=== PATIENT | female | born 1960 | race Caucasian/White ===

== ENCOUNTER 2017-05-10 13:51 | Observation (INO) ==
--- NOTE | 2017-05-10 14:44 | Emergency Department Note ---
Disposition Clinical Impression: Acute cholecystitis Nausea and vomiting Qualifiers: Vomiting type: unspecified Vomiting Intractability: non-intractable Qualified Code(s): R11.2 - Nausea with vomiting, unspecified Disposition: Admitted As Inpatient Condition: Fair Time of Disposition: 17:17 General Adult HPI - General Chief complaint: ED Abdominal Pain Stated complaint: N/V/D Time Seen by Provider: 05/10/17 14:27 Source: patient Mode of arrival: ambulatory Limitations: no limitations Nursing Notes Reviewed: Yes Vital Signs Reviewed: Yes - History of Present Illness HPI Narrative: Patient is a 57-year-old female with no pertinent past medical history she is presenting to the emergency department for the complaint of epigastric abdominal pain that started yesterday evening. Patient describes the pain as a burning sensation in the epigastric region that came on suddenly after eating dinner. She states that since that time the pain has been constant she is also has experienced multiple episodes of nausea and vomiting since that time. States last time she had any foods he was 18:00. Pain Scale: 9 - Related Data Home Medications Medication Instructions Recorded Confirmed Lisinopril [Zestril] 10 mg PO DAILY 11/08/14 05/10/17 Magnesium Oxide [Magnesium] 400 mg PO DAILY 12/27/16 05/10/17 Cholecalciferol (D-3) [Vitamin D] 1,000 unit PO DAILY 05/10/17 05/10/17 Pediatric Multivit Comb #19/FA 400 mcg PO DAILY 05/10/17 05/10/17 [Children's Multi-Vit Gummies] Previous Rx's Medication Instructions Recorded Anastrozole [Arimidex] 1 mg PO DAILY #90 tablet 03/21/17 Allergies Allergy/AdvReac Type Severity Reaction Status Date / Time Sulfa (Sulfonamide Allergy Hives Verified 12/27/16 11:00 Antibiotics) All systems ED: reviewed and negative except as stated. Review of Systems: As Per HPI Constitutional: Denies: fever, chills Cardiovascular: Denies: chest pain Respiratory: Denies: cough, dyspnea Gastrointestinal: Reports: abdominal pain, nausea, vomiting. Denies: diarrhea, hematemesis, melena, hematochezia Genitourinary: Denies: urgency, dysuria Musculoskeletal: Denies: back pain, neck pain Past Medical History - Past Medical History Attestation: Yes The following information was validated with the patient. Medical history: Reports: no medical history Psychiatric history: Reports: no psych history - Social History Smoking Status: Never smoker Smokeless Tobacco Status: No Alcohol use: Reports: none Drug use: Reports: none Physical Exam CONSTITUTIONAL: Alert and oriented X3, patient appears tired and fatigued, in no apparent distress HEAD: Normocephalic; atraumatic. EYES: PERRL, no scleral icterus. NOSE: The nose is normal in appearance without rhinorrhea THROAT: mucus membranes dry. RESP: Normal chest excursion with respiration; breath sounds clear and equal bilaterally; no wheezes, rhonchi, or rales CARD: Regular rhythm, without murmurs, rub or gallop ABD: Non-distended; mildly tender in the epigastric region, soft,without rigidity, rebound or guarding. SKIN: Normal for age and race; warm and dry; no apparent lesions - General Limitations: no limitations General appearance: alert Course Course Narrative: Patient is presenting with abdominal pain onset yesterday evening associated nausea and vomiting. Location of the pain is epigastric this will complete abdominal workup looking for any signs of cholecystitis, pancreatitis or other etiology of the patient's pain. We will also perform a cardiac workup of the patient due to the location of the pain including EKG, troponin and chest x- ray. Patient will be treated for her pain and her nausea we will also initiate IV fluid hydration. - Reevaluation(s) Reevaluation #1: Laboratory was essentially unremarkable except for showing signs of dehydration which is consistent with the clinical picture. The patient's CT of abdomen and pelvis resulted in radiology appreciated acute cholecystitis. Patient states that her pain has improved markedly after receiving the pain medication. Plan is to consult surgery for further management. Time: 17:06 Reevaluation #2: I discussed the patient's case with Dr. Dangelo, he agrees to accept the patient's he states that he will initiate IV antibiotics once patient is admitted he will see her tomorrow morning for surgery. I discussed this with the patient and she agrees with the plan at this time. She requested additional medication for nausea which I will order. Time: 18:05 Vital Signs Temperature 98.0 F 05/10/17 14:06 Pulse Rate 84 05/10/17 14:06 Respiratory Rate 16 05/10/17 14:06 Blood Pressure 156/83 05/10/17 14:06 O2 Sat by Pulse Oximetry 99 05/10/17 14:06 Temperature 98.0 F 05/10/17 14:06 Pulse Rate 91 05/10/17 17:26 Respiratory Rate 16 05/10/17 17:26 Blood Pressure 138/83 05/10/17 17:26 O2 Sat by Pulse Oximetry 96 05/10/17 17:26 Oxygen Delivery Oxygen Delivery Room Air Medical Decision Making - Medical Records Medical records reviewed: Yes I reviewed the patient's medical records. - Lab Data Lab results reviewed: Yes I reviewed the patient's lab results. Result diagrams: 05/10/17 15:19 05/10/17 14:42 Lab Results 05/10/17 05/10/17 05/10/17 Range/Units 14:42 15:10 15:19 WBC 10.8 (4.3-11.1) K/mcL RBC 3.66 L (3.82-4.97) M/mcL Hgb 11.6 (11.5-15.4) g/dL Hct 34.8 L (35.3-44.9) % MCV 95.1 (83.0-100.0) fL MCH 31.7 (28.0-33.3) pg MCHC 33.3 (31.6-35.5) g/dL RDW 12.2 (11.5-14.5) % Plt Count 217 (140-400) K/mcL MPV 9.5 (9.4-12.4) fL Immature Gran % 0.4 (0-4) % Seg Neutrophils % 93.5 % Lymphocytes % 3.4 % Monocytes % 2.6 % Eosinophils % 0.0 % Basophils % 0.1 % Neutrophils # 10.1 H (1.6-8.9) K/mcL Lymphocytes # 0.4 L (0.6-4.6) K/mcL Monocytes # 0.3 (0.0-1.3) K/mcL Eosinophils # 0.0 (0.0-0.6) K/mcL Basophils # 0.0 (0.0-0.2) K/mcL Sodium 137 (136-145) mEq/L Potassium 4.3 (3.5-5.1) mEq/L Chloride 105 (98-107) mEq/L Carbon Dioxide 20 L (23-29) mEq/L BUN 18 (6-20) mg/dL Creatinine 0.72 (0.60-1.20) mg/dL Est GFR ( Amer) > 60 (> 60) Est GFR (Non-Af Amer) > 60 (> 60) BUN/Creatinine Ratio 25 (6-26) Glucose 141 H (70-105) mg/dL Calculated Osmolality 288 (280-300) Calcium 9.9 (8.6-10.3) mg/dL Total Bilirubin 0.4 (0.3-1.0) mg/dL Direct Bilirubin 0.1 (0.0-0.2) mg/dL Indirect Bilirubin 0.3 (0.0-1.2) mg/dL AST 29 (13-39) Units/L ALT 23 (7-52) Units/L Alkaline Phosphatase 36 (34-104) Units/L Troponin I < 0.03 (< 0.04) ng/mL Serum Total Protein 7.4 (6.4-8.9) g/dL Albumin 4.6 (3.5-5.7) g/dL Globulin 2.8 (2.4-3.5) g/dL Albumin/Globulin Ratio 1.6 (1.1-2.2) Lipase 17 (11-82) Units/L Urine Color Yellow (Yellow) Urine Clarity Clear (Clear) Urine pH 7.0 (5.0-8.0) pH Units Ur Specific [place] 1.028 H (1.010-1.025) Urine Protein 30 H (Neg-Trace) mg/dL Urine Glucose (UA) Normal (Normal) mg/dL Urine Ketones 15 H (Negative) mg/dL Urine Blood Negative (Negative) Urine Nitrite Negative (Negative) Urine Bilirubin Negative (Negative) Urine Urobilinogen Normal (Normal) mg/dL Ur Leukocyte Esterase Negative (Negative) Urine Microscopic RBC 3-5 H (0-3) per hpf Urine Microscopic WBC 5-15 H (0-3) per hpf Ur Squamous Epith Cells Many H (None-Few) per lpf Urine Bacteria Few (None-Few) per hpf Hyaline Casts None Seen (None-Few) per lpf Ur Culture Indicated? NO (NO) - Radiology Data Radiology results reviewed: Yes I reviewed the patient's radiology results. Chest X-Ray 05/10/17 14:43 IMPRESSION: No acute cardiopulmonary process. D/ / Lucy Morel MD / Lucy Morel MD Interpreting Provider: Lucy Morel MD Abdomen/Pelvis CT 05/10/17 16:01 IMPRESSION: CT findings compatible with acute cholecystitis. Incidentally noted pulmonary micronodule. Diverticulosis coli. RECOMMENDATIONS: Fleischner Society guidelines for follow-up and management of pulmonary nodules: Nodule size less than or equal to 4 mm In a low-risk patient, no follow-up needed. In a high-risk patient, follow-up CT at 12 months; if unchanged, no further follow-up. Nodule size equals 4-6 mm In a low-risk patient, follow-up CT at 12 months; if unchanged, no further follow-up. In a high-risk patient, initial follow-up CT at 6-12 months then at 18-24 months if no change. Nodule size equals 6-8 mm In a low-risk patient, initial follow-up CT at 6-12 months then at 18-24 months if no change. In a high-risk patient, initial follow-up CT at 3-6 months then at 9-12 months and 24 months if no change. Nodule size greater than 8 mm In low-risk and high-risk patients follow-up CT at around 3, 9, and 24 months, dynamic contrast-enhanced CT, PET, and/or biopsy. Low risk patients include individuals with minimal or absent history of smoking and other known risk factors. High risk patients include individuals with a history of smoking or other known risk factors. Radiology 2005; [id number] D/ / Loki Greer MD / Loki Greer MD Interpreting Provider: Loki Greer MD - EKG Data EKG #1 EKG attestation: Yes I reviewed and interpreted this EKG. EKG results narrative: EKG done at 14:52 shows sinus rhythm at a rate of 76 bpm. Normal axis. MS is 170, QRS is 100, QT is 417 and QTc is 448 these are within normal limits. No signs of ST elevation, depression or Q waves presents in no old EKG for comparison.
[2017-05-10] MEDS ORDERED: 0.9 % Sodium Chloride 1,000 ML IVC ONE (15:02)
[2017-05-10] MEDS ORDERED: Ondansetron 4 MG/2 ML VIAL IVP ONE (15:02)
--- NOTE | 2017-05-10 15:24 | Emergency Department Note ---
START Narrative - START START: I examined this patient and my medical decision-making was reviewed with the ARTS ADMINISTRATOR/PA/Advanced Practice Nurse/Resident Physician. I agree with the documented findings, disposition and treatment plan as described except to the extent set forth below. The patient's presents with epigastric pain and fullness with associated vomiting and diarrhea and the patient did have a EKG which shows normal sinus rhythm with a rate of 76 without acute ischemic change but evidence of incomplete right bundle branch block and she does not have any associated diaphoresis or dyspnea and she does have pain with palpation in this location. A ultrasound will be done to take a look at her aorta however it is unlikely with her age that she has a dissection she does have associated vomiting or diarrhea. She does have labs ordered including LFTs and lipase and will also receive IV fluids and anti-medic medication. [id number]
[2017-05-10 15:25] LABS: Bilirubin,Urine Negative (Negative); Blood,Urine Negative (Negative); Clarity,Urine Clear (Clear); Color,Urine Yellow (Yellow); Glucose,Urine (UA) Normal (Normal); Ketones,Urine 15 mg/dL (Negative); Leukocyte Esterase,Urine Negative (Negative); Nitrite,Urine Negative (Negative); Protein,Urine 30 mg/dL (Neg-Trace); Specific Gravity,Urine 1.028 (1.010-1.025); Urobilinogen,Urine Normal (Normal)
[2017-05-10 15:26] LABS: Troponin I < 0.03 ng/mL (< 0.04)
[2017-05-10 15:28] LABS: Alanine Aminotransferase 23 Units/L (7-52); Albumin 4.6 g/dL (3.5-5.7); Albumin/Globulin Ratio 1.6 (1.1-2.2); Alkaline Phosphatase 36 Units/L (34-104); Aspartate Amino Transferase 29 Units/L (13-39); Bilirubin,Direct 0.1 mg/dL (0.0-0.2); Bilirubin,Indirect 0.3 mg/dL (0.0-1.2); Bilirubin,Total 0.4 mg/dL (0.3-1.0); Blood Urea Nitrogen 18 mg/dL (6-20); Calcium 9.9 mg/dL (8.6-10.3); Carbon Dioxide 20 mEq/L (23-29); Chloride 105 mEq/L (98-107); Globulin 2.8 g/dL (2.4-3.5); Glucose 141 mg/dL (70-105); Lipase 17 Units/L (11-82); Osmolality,Calculated 288 (280-300); Potassium 4.3 mEq/L (3.5-5.1); Sodium 137 mEq/L (136-145); Total Protein 7.4 g/dL (6.4-8.9)
[2017-05-10 15:31] LABS: Bacteria,Urine Few per hpf (None-Few); Hyaline Casts,Urine None Seen per lpf (None-Few); Squamous Epithelial Cell,Urine Many per lpf (None-Few)
[2017-05-10 15:54] LABS: Basophils % 0.1 %; Hematocrit 34.8 % (35.3-44.9); Hemoglobin 11.6 g/dL (11.5-15.4); Immature Granulocytes % 0.4 % (0-4); Lymphocytes # 0.4 K/mcL (0.6-4.6); Lymphocytes % 3.4 %; Mean Corpuscular HGB Conc 33.3 g/dL (31.6-35.5); Mean Corpuscular Hemoglobin 31.7 pg (28.0-33.3); Mean Corpuscular Volume 95.1 fL (83.0-100.0); Mean Platelet Volume 9.5 fL (9.4-12.4); Monocytes # 0.3 K/mcL (0.0-1.3); Monocytes % 2.6 %; Neutrophils # 10.1 K/mcL (1.6-8.9); Platelet Count 217 K/mcL (140-400); Red Blood Count 3.66 M/mcL (3.82-4.97); Red Cell Distribution Width 12.2 % (11.5-14.5); Segmented Neutrophils % 93.5 %
[2017-05-10] MEDS ORDERED: *HR* FentaNYL (PF) 100 MCG/2 ML VIAL IVP ONE ×2 (16:00→17:51)
[2017-05-10 16:33] LABS: BUN/Creatinine Ratio 25 (6-26); eGFR For African Americans > 60 (> 60); eGFR For Non-African Americans > 60 (> 60)
[2017-05-10] MEDS ORDERED: *HR* Promethazine 25 MG/ML VIAL IVP ONE (17:51)
[2017-05-10] MEDS ORDERED: *HR* OxyCODONE/APAP 10/325 TABLET PO PRN (19:24)
[2017-05-10] MEDS ORDERED: Ondansetron 4 MG/2 ML VIAL IVP PRN (19:25)
[2017-05-10] MEDS ORDERED: 0.9 % Sodium Chloride 1,000 ML IVC SCH (19:30)
[2017-05-10 19:48] LABS: Hematocrit 32.7 % (35.3-44.9); Immature Granulocytes % 0.4 % (0-4); Lymphocytes % 5.2 %; Mean Corpuscular HGB Conc 33.6 g/dL (31.6-35.5); Mean Corpuscular Hemoglobin 32.4 pg (28.0-33.3); Mean Corpuscular Volume 96.5 fL (83.0-100.0); Mean Platelet Volume 9.1 fL (9.4-12.4); Monocytes % 3.4 %; Platelet Count 202 K/mcL (140-400); Red Blood Count 3.39 M/mcL (3.82-4.97); Red Cell Distribution Width 12.4 % (11.5-14.5)
[2017-05-10 19:49] LABS: Lymphocytes # 0.6 K/mcL (0.6-4.6); Monocytes # 0.4 K/mcL (0.0-1.3); Neutrophils # 10.6 K/mcL (1.6-8.9)
[2017-05-10 20:07] LABS: BUN/Creatinine Ratio 23 (6-26); Blood Urea Nitrogen 17 mg/dL (6-20); Calcium 9.1 mg/dL (8.6-10.3); Carbon Dioxide 23 mEq/L (23-29); Chloride 107 mEq/L (98-107); Glucose 127 mg/dL (70-105); Osmolality,Calculated 289 (280-300); Potassium 3.9 mEq/L (3.5-5.1); Sodium 138 mEq/L (136-145); eGFR For African Americans > 60 (> 60); eGFR For Non-African Americans > 60 (> 60)
--- NOTE | 2017-05-10 22:04 | General Surg History&Physical ---
Date of Encounter: 05/10/17 Time of Encounter: 21:45 Assessment and Plan (1) Acute cholecystitis Current Visit: Yes Status: Acute The assessment and plan as outlined above was discussed with the patient and/or family members who expressed understanding and agreement. All questions were answered. History and radiologic findings consistent with acute cholecystitis, choledocholithiasis, possible obstructed gallbladder. She has mild leukocytosis. She will be given antibiotics tonight we will proceed with laparoscopic cholecystectomy first thing in the morning. We discussed risks and benefits of surgery including bleeding, infection, bile duct leak or injury , and open conversion. She wishes to proceed History of Present Illness Chief complaint: Acute cholecystitis HPI: Ms. Chung is a 57 year old female Who has had multiple episodes of mild epigastric postprandial discomfort for the last several years. Several days ago. Episodes became more intense with greater pain and longer duration. This morning she had onset of epigastric pain was unrelenting. This was associated with intense nausea and vomiting. She sought evaluation she does have shakes and chills. She does not have fever. She denies episodes of jaundice. Emergency room evaluation included CAT scan. Operation. CAT scan images. Findings are consistent with an obstructed gallbladder with a large gallstone in the neck gallbladder. The gallbladder was thickened with pericholecystic fluid Findings are consistent with acute cholecystitis and cholelithiasiss as well as gallbladder obstruction I discussed the findings CAT scan and physical examination. Recommend laparoscopic cholecystectomy and intraoperative cholangiogram after a period of IV antibiotics. She understands this and we will proceed first thing in the morning with laparoscopic cholecystectomy and cholangiogram Past Med Surg Social Fam HX - Past Medical History Medical history: no medical history, other (breast cancer 2013) Psychiatric history: no psych history - Past Surgical History Surgical History: other (bilateral mastectomy and reconstruction) - Social History Smoking Status: Never smoker Smokeless Tobacco Status: No Alcohol use: none Drug use: none Medications and Allergies Lisinopril [Zestril] 10 mg PO DAILY 11/08/14 [History] Magnesium Oxide [Magnesium] 400 mg PO DAILY 12/27/16 [History] Anastrozole [Arimidex] 1 mg PO DAILY #90 tablet 03/21/17 [Rx] Cholecalciferol (D-3) [Vitamin D] 1,000 unit PO DAILY 05/10/17 [History] Pediatric Multivit Comb #19/FA [Children's Multi-Vit Gummies] 400 mcg PO DAILY 05/10/17 [History] 3 Allergy/AdvReac Type Severity Reaction Status Date / Time Sulfa (Sulfonamide Allergy Hives Verified 12/27/16 11:00 Antibiotics) Review of Systems All systems PM: The remainder of the systems were reviewed and are negative General Surgery Exam Initial Vital Signs Temp Pulse Resp BP Pulse Ox 98.0 F 84 16 156/83 99 05/10/17 14:06 05/10/17 14:06 05/10/17 14:06 05/10/17 14:06 05/10/17 14:06 - General physical appearance well developed, well nourished, no distress - ENT normal pinna, normal nares, normal mucosa, no hearing loss, no congestion - Respiratory normal expansion, normal respiratory effort, clear to percussion, clear to auscultation - Cardiovascular Cardiovascular exam: Present: RRR, 15, 16 - Abdomen Abdomen general surgery: Present: bowel sounds present, tender Abdominal Tenderness: Present: epigastic - Integumentary Integumentary general surgery: Present: warm and dry, no abnormal pigmentation, other (no jaundice) - Neurologic Present: CN 2-12 grossly intact, normal coordination, normal sensation - Psychiatric Psychiatric general surgery: Present: appropriate, oriented to person, oriented to place, oriented to time, speech is normal, memory intact Results - Labs 05/10/17 19:39 05/10/17 19:39 Abnormal lab results WBC 11.6 K/mcL (4.3-11.1) H 05/10/17 19:39 RBC 3.39 M/mcL (3.82-4.97) L 05/10/17 19:39 Hgb 11.0 g/dL (11.5-15.4) L 05/10/17 19:39 Hct 32.7 % (35.3-44.9) L 05/10/17 19:39 MPV 9.1 fL (9.4-12.4) L 05/10/17 19:39 Neutrophils # 10.6 K/mcL (1.6-8.9) H 05/10/17 19:39 Glucose 127 mg/dL (70-105) H 05/10/17 19:39 Ur Specific [place] 1.028 (1.010-1.025) H 05/10/17 15:10 Urine Protein 30 mg/dL (Neg-Trace) H 05/10/17 15:10 Urine Ketones 15 mg/dL (Negative) H 05/10/17 15:10 Urine Microscopic RBC 3-5 per hpf (0-3) H 05/10/17 15:10 Urine Microscopic WBC 5-15 per hpf (0-3) H 05/10/17 15:10 Ur Squamous Epith Cells Many per lpf (None-Few) H 05/10/17 15:10 Diabetes panel 05/10/17 Range/Units 19:39 Sodium 138 (136-145) mEq/L Potassium 3.9 (3.5-5.1) mEq/L Chloride 107 (98-107) mEq/L Carbon Dioxide 23 (23-29) mEq/L BUN 17 (6-20) mg/dL Creatinine 0.75 (0.60-1.20) mg/dL Glucose 127 H (70-105) mg/dL Calcium 9.1 (8.6-10.3) mg/dL Calcium panel 05/10/17 Range/Units 19:39 Calcium 9.1 (8.6-10.3) mg/dL Pituitary panel 05/10/17 Range/Units 19:39 Sodium 138 (136-145) mEq/L Potassium 3.9 (3.5-5.1) mEq/L Chloride 107 (98-107) mEq/L Carbon Dioxide 23 (23-29) mEq/L BUN 17 (6-20) mg/dL Creatinine 0.75 (0.60-1.20) mg/dL Glucose 127 H (70-105) mg/dL Calcium 9.1 (8.6-10.3) mg/dL Adrenal panel 05/10/17 Range/Units 19:39 Sodium 138 (136-145) mEq/L Potassium 3.9 (3.5-5.1) mEq/L Chloride 107 (98-107) mEq/L Carbon Dioxide 23 (23-29) mEq/L BUN 17 (6-20) mg/dL Creatinine 0.75 (0.60-1.20) mg/dL Glucose 127 H (70-105) mg/dL Calcium 9.1 (8.6-10.3) mg/dL All other labs normal. - Imaging CT scan - abdomen: image reviewed (I personally reviewed the images on the CAT scan. Findings are consistent with acute cholecystitis and possibly an obstructed gallbladder with cholelithiasis and the neck of the gallbladder.) - VTE Reasons for not Prescribing Prophylaxis: Treatment not Indicated - Low risk for VTE
[2017-05-11] MEDS ORDERED: CefOXitin 1,000 MG VIAL ONE (07:03)
[2017-05-11 07:04] LABS: Basophils % 0.3 %; Eosinophils # 0.1 K/mcL (0.0-0.6); Eosinophils % 0.8 %; Hematocrit 29.6 % (35.3-44.9); Hemoglobin 9.7 g/dL (11.5-15.4); Immature Granulocytes % 0.3 % (0-4); Lymphocytes # 0.8 K/mcL (0.6-4.6); Lymphocytes % 9.8 %; Mean Corpuscular HGB Conc 32.8 g/dL (31.6-35.5); Mean Corpuscular Hemoglobin 31.8 pg (28.0-33.3); Mean Platelet Volume 9.1 fL (9.4-12.4); Monocytes # 0.5 K/mcL (0.0-1.3); Monocytes % 6.9 %; Neutrophils # 6.4 K/mcL (1.6-8.9); Platelet Count 156 K/mcL (140-400); Red Blood Count 3.05 M/mcL (3.82-4.97); Red Cell Distribution Width 12.6 % (11.5-14.5); Segmented Neutrophils % 81.9 %
[2017-05-11] MEDS ORDERED: Isovue-300 50 ML VIAL IVP ONE (07:05)
--- NOTE | 2017-05-11 07:15 | Anesthesia Evaluation PreOp ---
Date of Encounter: 05/11/17 Time of Encounter: 07:20 - Past History Planned Operation: Lap Cholecystectomy Cardiac History: HTN Pulmonary History: Denies Any Significant HX CLOTH EXAMINER MACHINE History: Denies Any Significant HX Other Medical History: Denies Any Significant HX Anesthesia History: No Prior Anesthetic Complications : No Alcohol Use: none Drug use: none Medications and Allergies Lisinopril [Zestril] 10 mg PO DAILY 11/08/14 [History] Magnesium Oxide [Magnesium] 400 mg PO DAILY 12/27/16 [History] Anastrozole [Arimidex] 1 mg PO DAILY #90 tablet 03/21/17 [Rx] Cholecalciferol (D-3) [Vitamin D] 1,000 unit PO DAILY 05/10/17 [History] Pediatric Multivit Comb #19/FA [Children's Multi-Vit Gummies] 400 mcg PO DAILY 05/10/17 [History] 3 Allergy/AdvReac Type Severity Reaction Status Date / Time Sulfa (Sulfonamide Allergy Hives Verified 12/27/16 11:00 Antibiotics) - Meds/Allergy Pre-op Review Medications Reviewed: Yes Allergies Reviewed: Yes Beta Blockers on Current Med List: No Anesthesia Results - Labs 05/11/17 06:48 05/10/17 19:39 Anesthesia Exam O2 Sat Height 48.6 cm Height 1.63 m Weight 48.994 kg Weight 48.534 kg O2 Sat by Pulse Oximetry 74 O2 Sat by Pulse Oximetry 96 O2 Sat by Pulse Oximetry 96 O2 Sat by Pulse Oximetry 97 O2 Sat by Pulse Oximetry 96 O2 Sat by Pulse Oximetry 98 O2 Sat by Pulse Oximetry 99 O2 Sat by Pulse Oximetry 99 O2 Sat by Pulse Oximetry 99 Vital Signs Temp Pulse Resp BP Pulse Ox 98.0 F 84 16 156/83 99 05/10/17 14:06 05/10/17 14:06 05/10/17 14:06 05/10/17 14:06 05/10/17 14:06 Height: 5'4 Weight: 108 lbs NPO (# of Hours): MN Pain Scale: 0 - HEENT Pupil (Motor): Pupils equal, EOMI Mallampati: II Teeth: Normal Oral Opening: Greater than 3 - CLOTH EXAMINER MACHINE LOC: Oriented CLOTH EXAMINER MACHINE Motor: Normal RUE, Normal LUE, Normal RLE, Normal LLE, Normal Face [employer]OTH EXAMINER MACHINE Sensory: Normal: RUE, LUE, RLE, LLE, Face - Cardiac Rhythm: Regular Murmur: None JVD: No Carotid Bruit: No - Pulmonary Breath Sounds: bilateral Clear Respiratory Effort: Symmetrical Anesthesia Assess/Plan ASA Score: 2 Modified Jl Scale for Level of Consciousness: Cooperative, oriented, and tranquil Anesthetic Plan: General Monitoring Plan: Standard Monitors Recovery Plan: PACU (Discussed GA, agrees to proceed)
[2017-05-11] MEDS ORDERED: *HR* Rocuronium Bromide 50 MG/5 ML VIAL ONE (07:23)
[2017-05-11] MEDS ORDERED: *HR* Propofol 200 MG/20 ML VIAL IVP ONE (07:23)
[2017-05-11] MEDS ORDERED: *HR* FentaNYL (PF) 100 MCG/2 ML VIAL ONE (07:23)
[2017-05-11 07:25] LABS: BUN/Creatinine Ratio 19 (6-26); Blood Urea Nitrogen 11 mg/dL (6-20); Calcium 7.1 mg/dL (8.6-10.3); Carbon Dioxide 22 mEq/L (23-29); Chloride 115 mEq/L (98-107); Glucose 87 mg/dL (70-105); Osmolality,Calculated 287 (280-300); Potassium 3.1 mEq/L (3.5-5.1); Sodium 139 mEq/L (136-145); eGFR For African Americans > 60 (> 60); eGFR For Non-African Americans > 60 (> 60)
[2017-05-11] MEDS ORDERED: Lidocaine -MPF 4% 5 ML AMPUL ONE (07:26)
[2017-05-11] MEDS ORDERED: Ondansetron 4 MG/2 ML VIAL ONE (07:27)
[2017-05-11] MEDS ORDERED: Dexamethasone 4 MG/ML VIAL ONE (07:27)
[2017-05-11] MEDS ORDERED: Acetaminophen IV 1,000 MG/100 ML INFUS..BTL ONE (08:03)
[2017-05-11] MEDS ORDERED: *HR* PHENYLEPHRINE 1,000 MCG/10 ML SYRINGE IVP ONE (08:16)
[2017-05-11] MEDS ORDERED: Neostigmine Methylsulfate 3 MG/3 ML SYRINGE ONE (08:45)
[2017-05-11] MEDS ORDERED: Ketorolac 30 MG/ML VIAL ONE (08:49)
[2017-05-11] MEDS ORDERED: *HR* Morphine 10 MG/ML VIAL ONE (08:57)
--- NOTE | 2017-05-11 09:05 | Operative Note ---
Date of procedure: 05/11/17 Pre-op diagnosis: acute cholecystitis and cholelithiasis Post-op diagnosis: same Procedure: laparoscopic cholecystectomy and cholangiogram Anesthesia: JONI Surgeon: Timmy Dangelo Was there an pharmacy affairs assistant present: No Estimated blood loss (cc): 20 Specimen: gallbladder and contents Condition: stable Disposition: PACU Procedure in Detail: Laparoscopic cholecystectomy and intraoperative cholangiogram Operative procedure after informed consent and appropriate patient identification timeout the patient was taken to the major operating suite and placed supine position given adequate general endotracheal anesthesia the abdomen is prepped and draped in sterile fashion utilizing ChloraPrep standard draping techniques timeout was taken patient is identified. I made a vertical midline incision below the umbilicus dissected down to level of fascia there are 2 traction stitches placed in the abdominal cavity was entered visually. A Montaño trocar was placed in the abdomen and the abdomen was insufflated to 15 mmHg pressure CO2 the gallbladder was visualized. A placement 11 port in the subxiphoid area and 2 5 mm ports in the subcostal area. The gallbladder was completely obstructed. This was decompressed with suction decompression. The gallbladder was grasped and elevated. A variety of blunt and sharp dissection techniques were used to isolate the cystic duct and cystic artery. The cystic artery was controlled with 2 surgical clips proximally and one distally and it was divided I placed a surgical clip on the neck the gallbladder and obtained an intraoperative cholangiogram using 10 mL of Isovue. Intraoperative cholangiogram was normal. The cholangiocatheter was removed and the cystic duct was controlled with 2 surgical clips proximally and was divided the gallbladder was removed from the gallbladder fossae using electrocautery. The gallbladder was removed through the #11 port site in a specimen bag. I replaced the #11 port and irrigated with copious amounts of antibiotic containing solution. There is no evidence of bleeding or bile leak. All trochars were removed. Fascia was closed with 0 Vicryl skin with 2-0 and 4-0 Vicryl he tolerated the procedure well and was transferred to recovery in stable condition
--- NOTE | 2017-05-11 09:52 | Anesthesia Evaluation Post Op ---
Date of Encounter: 05/11/17 Time of Encounter: 09:50 - Vital Signs Vital Signs: Vital Signs/O2 Sat/Glucose, Most Current Temp Pulse Resp BP Pulse Ox 05/11/17 09:38 98.2 F 57 16 121/70 98 05/11/17 09:28 98.6 F 61 16 110/68 95 05/11/17 09:18 98.6 F 61 16 111/87 95 05/11/17 09:08 98.6 F 66 16 122/72 95 - Lungs Lungs: Clear Ascult./Percussion - Airway Airway: Non-obstructed - Cardiovascular Regular Rate - Mental Status Mental Status: Alert & Oriented, Answers Appropriately - Pain Pain Scale: 0 - Nausea Vomiting Nausea Vomiting: Not Present - Hydration Hydration: Ice chips - Discharge PostOp Status: Transfer Patient to floor
[2017-05-11] MEDS ORDERED: Ondansetron 4 MG/2 ML VIAL IVP PRN (10:08)
[2017-05-11] MEDS ORDERED: *HR* OxyCODONE/APAP 5/325 TABLET PO PRN (10:08)
[2017-05-11] MEDS ORDERED: OXYCODONE Oral CONC 10 MG/0.5 ML ORAL.SYG SL PRN (10:08)
[2017-05-11] MEDS ORDERED: cefOXitin 2,000 MG in Water for inj. (sterile) 20 ML 10 ML IVP SCH ×2 (12:00)
[2017-05-11 12:56] VITALS: BP 99/55
--- NOTE | 2017-05-11 16:18 | Discharge Summary ---
<Jessica Cooper - Last Filed: 05/11/17 16:34> Orders not resulted at time of discharge: Pending orders 05/11/17 08:38 Surgical Pathology [PTH] Routine Date of Encounter: 05/11/17 Time of Encounter: 16:22 - Discharge Diagnosis (1) Status post laparoscopic cholecystectomy Priority: Primary Status: Acute Comments: History and radiological findings consistent with acute cholecystitis, choledocholithiasis, and possible obstructed gallbladder. She had mild leukocytosis on admission. Patient had laparoscopic cholecystectomy and intraoperative cholangiogram on 05/11/2017. Patient tolerated procedure well. Patient has tolerated regular diet without any nausea and vomiting. Patient has bowel sounds in all 4 quadrants and is passing gas. Patient is afebrile, alert, and in no acute distress. Patient denies any fever, headaches, vision changes, chest pain, shortness of breath, difficulty breathing, urinary symptoms , numbness and tingling, and any weaknesses at this time. Patient has no other concerns at this time. Patient is instructed to follow-up with outpatient clinic. Patient demonstrates verbal understanding. (2) Acute cholecystitis Priority: Primary Status: Acute General Surgery Exam Initial Vital Signs Temp Pulse Resp BP Pulse Ox 98.0 F 84 16 156/83 99 05/10/17 14:06 05/10/17 14:06 05/10/17 14:06 05/10/17 14:06 05/10/17 14:06 - General physical appearance well developed, well nourished, no distress - Eyes PERRL, normal ocular movement - ENT normal mucosa - Neck trachea midline - Respiratory normal expansion, normal respiratory effort - Cardiovascular Cardiovascular exam: Present: RRR, no murmurs/rubs/gallops - Abdomen Abdomen general surgery: Present: bowel sounds present, soft, tender ( Appropriate postoperative tenderness.). Absent: distended, guarding, rebound, rigid - Incision Incision: Present: clean and dry, intact. Absent: draining, purulent - Integumentary Integumentary general surgery: Present: warm and dry - Neurologic Present: CN 2-12 grossly intact - Psychiatric Psychiatric general surgery: Present: appropriate, oriented to person, oriented to place, oriented to time - Hospital Course Hospital course: Ms. Chung is a 57 year old female who has had multiple episodes of mild epigastric postprandial discomfort for the last several years. Those episodes became more intense with greater pain and longer duration for the past several days prior to coming to the emergency department. It was associated with intense nausea and vomiting. She sought evaluation in the ED and admits shakes and chills. She does not have fever. She denies episodes of jaundice. Emergency room evaluation included CAT scan. Chest x-ray showed no acute cardiopulmonary processes. CT of abdomen and pelvis without contrast showed findings are consistent with an obstructed gallbladder with a large gallstone in the neck gallbladder. The gallbladder was thickened with pericholecystic fluid. Findings are consistent with acute cholecystitis and cholelithiasiss as well as gallbladder obstruction. Dr. Dangelo discussed the findings CT scan and physical examination. Recommend laparoscopic cholecystectomy and intraoperative cholangiogram after a period of IV antibiotics. She understands this and agrees with laparoscopic cholecystectomy and cholangiogram. Surgical intervention was completed on 05/11. Per operating note, the patient tolerated procedure very well. Patient denies any fever, headaches, vision changes, chest pain, shortness of breath, difficulty breathing, urinary symptoms, numbness and tingling, and any weaknesses at this time. Patient has no other concerns at this time. Patient is instructed to follow-up with outpatient clinic. Patient demonstrates verbal understanding. - Time Spent with Patient Total time spent providing and/or coordinating discharge services: Greater than 30 minutes - Discharge Medications Prescriptions: OxyCODONE/APAP 10/325 [Percocet 10/325 MG] 1 each PO Q6HR PRN 6 Days #24 tablet PRN Reason: Pain Docusate [Colace] 100 mg PO BID PRN #30 capsule PRN Reason: Constipation Ibuprofen [Motrin] 600 mg PO TID PRN #30 tab PRN Reason: Pain Home Medications: Lisinopril [Zestril] 10 mg PO DAILY 11/08/14 [History] Magnesium Oxide [Magnesium] 400 mg PO DAILY 12/27/16 [History] Anastrozole [Arimidex] 1 mg PO DAILY #90 tablet 03/21/17 [Rx] Cholecalciferol (D-3) [Vitamin D] 1,000 unit PO DAILY 05/10/17 [History] Pediatric Multivit Comb #19/FA [Children's Multi-Vit Gummies] 400 mcg PO DAILY 05/10/17 [History] Docusate [Colace] 100 mg PO BID PRN #30 capsule 05/11/17 [Rx] Ibuprofen [Motrin] 600 mg PO TID PRN #30 tab 05/11/17 [Rx] OxyCODONE/APAP 10/325 [Percocet 10/325 MG] 1 each PO Q6HR PRN 6 Days #24 tablet 05/11/17 [Rx] Allergies/Adverse Reactions: 3 Allergy/AdvReac Type Severity Reaction Status Date / Time Sulfa (Sulfonamide Allergy Hives Verified 12/27/16 11:00 Antibiotics) Date of admission: 05/10/17 17:25 Primary care physician: Adriana Patel, Discharging clinician: Jessica Cooper Labs on day of discharge: Labs from last 24 hours 05/11/17 05/11/17 05/10/17 06:48 06:48 19:39 WBC 7.8 RBC 3.05 L Hgb 9.7 L Hct 29.6 L MCV 97.0 MCH 31.8 MCHC 32.8 RDW 12.6 Plt Count 156 MPV 9.1 L Immature Gran % 0.3 Seg Neutrophils % 81.9 Lymphocytes % 9.8 Monocytes % 6.9 Eosinophils % 0.8 Basophils % 0.3 Neutrophils # 6.4 Lymphocytes # 0.8 Monocytes # 0.5 Eosinophils # 0.1 Basophils # 0.0 Sodium 139 138 Potassium 3.1 L 3.9 Chloride 115 H 107 Carbon Dioxide 22 L 23 BUN 11 17 Creatinine 0.57 L 0.75 Est GFR ( Amer) > 60 > 60 Est GFR (Non-Af Amer) > 60 > 60 BUN/Creatinine Ratio 19 23 Glucose 87 127 H Calculated Osmolality 287 289 Calcium 7.1 L 9.1 05/10/17 19:39 WBC 11.6 H RBC 3.39 L Hgb 11.0 L Hct 32.7 L MCV 96.5 MCH 32.4 MCHC 33.6 RDW 12.4 Plt Count 202 MPV 9.1 L Immature Gran % 0.4 Seg Neutrophils % 91.0 Lymphocytes % 5.2 Monocytes % 3.4 Eosinophils % 0.0 Basophils % 0.0 Neutrophils # 10.6 H Lymphocytes # 0.6 Monocytes # 0.4 Eosinophils # 0.0 Basophils # 0.0 Sodium Potassium Chloride Carbon Dioxide BUN Creatinine Est GFR ( Amer) Est GFR (Non-Af Amer) BUN/Creatinine Ratio Glucose Calculated Osmolality Calcium - Impressions ITS Impressions Cholangiogram,Operative 05/11/17 00:00 IMPRESSION: Unremarkable intraoperative cholangiogram. D/ / 05/11/2017 10:39:35 Michael Dee MD / Faiza Patino Interpreting Provider: Michael Dee MD - Patient Status Disposition: Home, Self-Care Condition: Fair Functional capacity at discharge: independent ambulation Overall status at discharge: patient is progressing back to baseline - Discharge Instructions Instructions: Cholecystitis (DC), Laparoscopic Cholecystectomy (DC) Follow Up With: Sandra Chicas CNP [Advanced Practice Nurse] - (Please call office on Saturday to schedule appt.) Adriana Patel MD [Primary Care Provider] - (Please call office on Saturday to schedule appt.) Additional Instructions: 1. No pushing, pulling, or lifting greater than 15 lbs for 4 weeks (depending upon procedure). 2. You may shower beginning today, but no tub baths, soaking, or swimming for 2 weeks. 3. You may resume driving when you are off narcotics and are safe to react in a car. 4. Take ibuprofen every 8 hours for discomfort. If this does not relieve discomfort, you may take the as needed Percocet. Take narcotics as directed. Do not take more narcotics then directed and do not share your narcotics with any other person. Do not drink alcohol while on narcotics. 5. Take stool softeners (Colace) or a water based laxative (Miralax) while taking narcotics. You may hold for loose stools. 6. Report any fevers greater than 100.5F, increase abdominal discomfort, drainage that looks like pus, increased redness or pain at the surgical site, or any vomiting. 7. Report any pain in the calves, shortness of breath, or rapid heartbeat. 8. Follow-up in the office as directed. 9. If you were prescribed antibiotics, do not stop them without talking to your provider. - Diet and Activity Activity: increase activity as tolerated Diet: advance to your usual diet <Timmy Dangelo - Last Filed: 05/12/17 12:49> Orders not resulted at time of discharge: Pending orders 05/11/17 08:38 Surgical Pathology [PTH] Routine Date of Encounter: 05/11/17 - Discharge Diagnosis (1) Acute cholecystitis Status: Acute General Surgery Exam Initial Vital Signs Temp Pulse Resp BP Pulse Ox 98.0 F 84 16 156/83 99 05/10/17 14:06 05/10/17 14:06 05/10/17 14:06 05/10/17 14:06 05/10/17 14:06 - Hospital Course Hospital course: Ms. Chung is a 57 year old female - Time Spent with Patient Total time spent providing and/or coordinating discharge services: Date of admission: 05/10/17 17:25 Primary care physician: Adriana Patel, - Impressions ITS Impressions Cholangiogram,Operative 05/11/17 00:00 IMPRESSION: Unremarkable intraoperative cholangiogram. D/ / 05/11/2017 10:39:35 Michael Dee MD / Faiza Patino Interpreting Provider: Michael Dee MD - Attending Attestation I examined this patient and my medical decision-making was reviewed with the Resident Physician. I agree with the documented findings, disposition and treatment plan as described except to the extent set forth below. The patient is seen and evaluated on morning rounds with the resident. She had laparoscopic cholecystectomy and has done well and is now ready for discharge. I will see her next week in the office. Timmy Dangelo MD FACS
[2017-05-12] MEDS ORDERED: Anastrozole 1 MG TABLET PO SCH (09:00)
[2017-05-12] MEDS ORDERED: Magnesium Oxide 400 MG TABLET PO SCH (09:00)
[2017-05-12] MEDS ORDERED: Cholecalciferol (D-3) 1,000 UNIT TABLET PO SCH (09:00)
--- NOTE | 2017-05-14 22:50 | Electrocardiograph Report ---
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
== END 2017-05-11 18:21 | disposition home or self-care (01) ==
LOC: 3ANU 13:51 → EMEROO 13:51 → 3ANU 18:36
PROVIDERS: ADMIT Surgery; ATTEND Surgery